=== PATIENT | female | born 1945 | race Caucasian/White ===

== ENCOUNTER 2016-05-11 13:03 | Emergency (ER) | payer MEDICARE, BC ==
--- NOTE | 2016-05-11 13:32 | ED ---
Lower Extremity Injury HPI - General Chief Complaint: Extremity Injury, Lower Stated Complaint: Fall/knee pain Time Seen by Provider: 05/11/16 13:19 Source: patient, RN notes reviewed Mode of arrival: wheelchair Limitations: no limitations - History of Present Illness Initial Comments: Patient is a 71-year-old female presents to the emergency room for evaluation of left knee pain. Patient states about an hour ago her dog ran into her left knee and she fell to the ground. Patient states after she got up she began having worsening left knee pain where her dog ran into her. Patient denies any other injuries during incident. Patient denies head trauma or pain on the right side where she landed. Patient states she landed on the grass. Patient states she's having 10 out of 10 pain in her knee whenever she puts weight on her left leg. Patient denies any pain when she is not putting weight on her left leg. Patient denies numbness or tingling in her toes. Patient states she took 3 Tylenol before arrival with slight relief symptoms. - Related Data Previous Rx's Medication Instructions Recorded HYDROcodone/APAP 5-325MG [[place] 1 tab PO Q6HR PRN #12 tab 05/11/16 5-325] Allergies Allergy/AdvReac Type Severity Reaction Status Date / Time No Known Allergies Allergy Verified 05/11/16 13:11 Review of Systems ROS Statement: Those systems with pertinent positive or pertinent negative responses have been documented in the HPI. ROS Other: All systems not noted in ROS Statement are negative. Past Medical History Additional Past Medical History / Comment(s): hx diverticulitis, has had some leakage of stool with coughing History of Any Multi-Drug Resistant Organisms: None Reported Past Surgical History: Hernia Repair Past Anesthesia/Blood Transfusion Reactions: No Reported Reaction, Postoperative Nausea & Vomiting (PONV) Past Psychological History: No Psychological Hx Reported Smoking Status: Never smoker Past Alcohol Use History: None Reported Past Drug Use History: None Reported - Past Family History Mother Family Medical History: Cancer Father Family Medical History: Cancer Sister(s) Family Medical History: Cancer General Exam - General Exam Comments Initial Comments: Sitting in exam room in no acute distress. Limitations: no limitations General appearance: alert, in no apparent distress Head exam: Present: atraumatic, normocephalic, normal inspection Eye exam: Present: normal appearance ENT exam: Present: normal exam Neck exam: Present: normal inspection Respiratory exam: Present: normal lung sounds bilaterally. Absent: respiratory distress Cardiovascular Exam: Present: regular rate, normal rhythm, normal heart sounds Left Upper Leg exam: Present: normal inspection, full ROM. Absent: tenderness Knee exam: Present: full ROM, tenderness (Pain on palpating over the lateral portion of the knee joint inferior to the patella), swelling, full knee extension. Absent: abrasion, laceration, ecchymosis, deformity, crepitus Lower Leg exam: Present: normal inspection, full ROM. Absent: tenderness Neurovascular tendon exam: Present: no vascular compromise. Absent: pulse deficit (2+ dorsal pedal and posterior tibial pulses), abnormal cap refill ( Capillary refill less than 2 seconds) Back exam: Present: normal inspection Neurological exam: Present: alert, oriented X3, CN II-XII intact Psychiatric exam: Present: normal affect, normal mood Skin exam: Present: warm, dry, intact, normal color. Absent: rash Course Vital Signs 05/11/16 05/11/16 13:08 15:02 Temperature 97.0 F L 97.1 F L Pulse Rate 67 74 Respiratory 16 18 Rate Blood Pressure 141/67 136/69 O2 Sat by Pulse 97 98 Oximetry Medical Decision Making - Medical Decision Making Patient is a 71-year-old female presents to the emergency room for evaluation of left knee pain. Left knee x-ray: Tibial plateau fracture with depression. Case states discussed with Dr. Mckeon. Dr. Mckeon also evaluated patient. Dr. Mckeon spoke with Dr. Lira who advised to place patient in a knee immobilizer and have her follow-up next week. Results and plan discussed with patient. Patient states she understands her diagnosis discussed with her. Return parameters discussed. - Radiology Data Radiology results: report reviewed, image reviewed Disposition Clinical Impression: Fracture of left tibial plateau Disposition: HOME SELF-CARE Condition: Good Instructions: Leg Fracture (ED), Knee Immobilizer (ED) Additional Instructions: Rest, elevate and ice on and off for 10-15 minutes for the next 24-48 hours. Use walker as needed to ambulate. Take Tylenol or Motrin as needed for pain. Take [place] as needed for severe pain. Please follow-up with behavior management specialist in 24-48 hours. If new symptoms develop or symptoms worsen, please return to the ER. Prescriptions: HYDROcodone/APAP 5-325MG [[place] 5-325] 1 tab PO Q6HR PRN #12 tab PRN Reason: Pain Referrals: Lena Crews MD [Primary Care Provider] - 1-2 days Deep Lira MD [Medical Doctor] - 1-2 days Time of Disposition: 14:44
--- NOTE | 2016-05-11 14:07 | XR ---
Left knee HISTORY: Trauma and pain 3 views of the left knee, no comparisons There is a depressed tibial plateau fracture laterally. No evident dislocation. Bone mineralization i s reduced. There is joint effusion. IMPRESSION: Tibial plateau fracture with depression, there is likely combination.
[2016-05-11 15:03] VITALS: BP 136/69; PULSE 74; RESP 18; TEMP 97.1
== END 2016-05-11 15:02 | disposition home or self-care (01) ==
LOC: EC 13:03
DX: S82.142A Displaced bicondylar fracture of left tibia, initial encounter for closed fracture (principal); W01.0XXA Fall on same level from slipping, tripping and stumbling without subsequent striking against object, initial encounter
CPT/HCPCS: 73562; 99284; L1830

== ENCOUNTER → 2016-05-13 | Outpatient (CLI) | payer MEDICARE, BC ==
--- NOTE | 2016-05-13 12:45 | CT ---
EXAMINATION TYPE: CT knee LT wo con DATE OF EXAM: 05/13/2016 12:34 PM COMPARISON: NONE HISTORY: LEFT KNEE PAIN FOLLOWING INJURY, PT STATES SHE WAS PUSHED DOWN BY HER DOG CT DLP: 359.8 mGycm Automated exposure control for dose reduction was used. Unenhanced CT of the left knee was performed in the axial coronal and sagittal planes with bone and soft tissue window settings submitted. FINDINGS: Mildly comminuted and depressed fracture lateral tibial plateau. Fracture depression is estimated at approximately 5.7 mm. Fracture displacement that the 2 mm. A fracture component does extend just medi al to the medial intercondylar spine. No additional fractures identified with certainty. Small hemart hrosis identified. Patellas intact. IMPRESSION: MILDLY COMMINUTED MILDLY DEPRESSED FRACTURE INVOLVING THE LATERAL TIBIAL PLATEAU WITH NONDISPLACED OF FRACTURE COMPONENT EXTENDING JUST MEDIAL TO THE MEDIAL INTERCONDYLAR SPINE.
== END | disposition home or self-care (01) ==
LOC: RADCTMAIN 12:14
PROVIDERS: ATTEND Orthopaedic Surgery
DX: S82.122A Displaced fracture of lateral condyle of left tibia, initial encounter for closed fracture (principal)

== ENCOUNTER 2016-05-17 12:34 | Day surgery (SDC) | payer MEDICARE, BC ==
[2016-05-15 16:02] VITALS: BMI 29.2
[~2016-05-17 12:34] MED LIST: HYDROmorphone 1 MG/ML 1 ML SYRINGE IVP PRN; MIDAZOLAM 2 MG/2 ML VIAL IV PRN; ONDANSETRON 4 MG/2 ML VIAL IVP ONE
[2016-05-17] MEDS: LACTATED RINGERS 1,000 ML IV SCH ×2 (13:10→20:38)
[2016-05-17] MEDS ORDERED: LIDOCAINE 1% 20 ML VIAL (10MG/ML) FOR IV START INTRADERMA ONE (13:11)
[2016-05-17] MEDS ORDERED: DEXAMETHASONE SOD PHOSPHATE 10 MG/ML 1 ML VIAL IV ONE (13:12)
[2016-05-17] MEDS ORDERED: PROPOFOL 10 MG/ML 20 ML VIAL IV ONE (14:36)
[2016-05-17] MEDS ORDERED: fentaNYL (PF) 50 MCG/ML 2 ML AMP ONE (14:36)
[2016-05-17] MEDS ORDERED: HYDROmorphone (PF) 1 MG/ML ONE (14:36)
[2016-05-17] MEDS ORDERED: PHENYLEPHRINE-0.9% NACL SYG 1 MG/10 ML SYRINGE ONE (14:36)
[2016-05-17] MEDS ORDERED: MIDAZOLAM 2 MG/2 ML VIAL ONE (14:36)
[2016-05-17] MEDS: ceFAZolin 2 GM in SODIUM CHLORIDE 0.9% 100 ML IVPB ONE ×2 (14:42→14:53)
[2016-05-17] MEDS ORDERED: ceFAZolin 1,000 MG in SODIUM CHLORIDE 0.9% 1,000 ML IRRIGATION ONE (14:43)
[2016-05-17] MEDS ORDERED: LACTATED RINGERS 1,000 ML IV ONE (15:23)
--- NOTE | 2016-05-17 17:25 | FL ---
EXAMINATION TYPE: FL guidance operating room DATE OF EXAM: 05/17/2016 5:19 PM FLUOROSCOPY Fluoroscopy time of 3 minutes 53 seconds was used during ORIF left tibia. 8 image/s document/s the p rocedure.
[2016-05-17] MEDS ORDERED: NALOXONE 0.4 MG/ML 1 ML VIAL IV PRN (17:55)
[2016-05-17] MEDS ORDERED: HYDROcodone/APAP 5-325MG 1 EACH TAB PO PRN (17:55)
[2016-05-17] MEDS ORDERED: MAGNESIUM HYDROXIDE 2,400 MG/10 ML CUP PO PRN (17:55)
--- NOTE | 2016-05-17 18:15 | P.OP ---
Date of Procedure: 05/17/16 Preoperative Diagnosis: Left split-depression tibial plateau fracture Postoperative Diagnosis: Closed, left split-depression tibial plateau fracture Procedure(s) Performed: Open reduction internal fixation of left tibial plateau fracture Anesthesia: spinal Surgeon: Deep Lira Estimated Blood Loss (ml): 50 IV fluids (ml): 1,400 Condition: stable Disposition: PACU Indications for Procedure: The patient is a very pleasant previously healthy 71-year-old female who sustained an isolated injury to her left knee last Friday when her dog ran into her. She fell to the ground and was unable to get up and walk. She was brought to the emergency department where x-rays showed a split depression tibial plateau fracture. She is placed in the immobilizer and follow-up in my office on Friday morning. X-rays showed a significantly displaced, lateral joint surface. The patient is previously very healthy and active. She enjoys walking outside and riding a bike. I recommendation is to perform an open reduction and internal fixation to elevate the depressed articular fragment to help lower her risk of getting arthritis. We discussed the potential risks and complications of surgery including but not limited to risk of anesthesia, risk of superficial infection, risk of deep infection, risk of septic knee arthritis , risk of damage to local blood vessels or nerves, risk of fracture nonunion, risk of fracture malunion, risk of posterior medical arthritis, risk of symptomatic hardware, risk of knee stiffness, risk of need for hardware removal , risk of need for further surgery, risk of need for knee replacement, risk of generalized satisfaction with surgery, and possibly loss of life or limb. The patient voiced her verbal understanding of these potential risks and provided her consent to go forward with surgery. Description of Procedure: The patient was identified in preoperative holding and the correct left leg was marked with a marker. I reviewed the consent form with the patient and her sons. All of their questions were answered. The patient was then brought back to the operating room. A spinal anesthetic was administered. She was transferred from the [facility] onto the operating room table. A tourniquet was applied to the proximal aspect of her left thigh. A bone foam ramp was placed under her left buttock internally rotating the left leg. The patient's left leg was then prepped and draped in the standard sterile fashion. Preoperative attics were administered. A timeout was performed identifying the correct patient, operative extremity, and procedure. The patient's leg was then elevated, exsanguinated with an Esmarch and age and the tourniquet was inflated to 250 mmHg. I began by outlining an L-shaped incision over the proximal lateral aspect of the tibia. A 10 cm longitudinal limb was marked out 1 fingerbreadth lateral to the anterior crest of the tibia. 1 cm distal to the joint surface a horizontal limb was made. Skin incision was made with a 10 blade scalpel over the longitudinal limb of the incision and I dissected carefully down to the fascia overlying the tibialis anterior muscle taking care to elevate full-thickness flaps. The tibialis anterior fascia was incised longitudinally in line with the skin incision. Muscle fibers the tibialis anterior were bluntly dissected off the tibia with a medium Gutierrez elevator. The horizontal limb of the incision was then made with a 10 blade scalpel I dissected carefully down with tenotomy scissors to the joint capsule. An 0 Vicryl suture was placed in the flap to help retract. A sub-meniscal arthrotomy was performed and sutures were placed through the lateral meniscus and capsule. With careful retraction of the sutures the lateral meniscus was visible and no tears were noted. The joint surface was visualized and there was a significantly depressed portion of the articular surface in the middle of the lateral plateau. I was able to put my finger into the joint and the fragment was significantly depressed. I began by making a cortical window in the anterolateral face of the proximal tibia. A series of bone tamps were used to try to elevate the articular fragment. I was unable to elevate the fragment. I then was able to identify the lateral split and gently opened it with an osteotome. I hinged the anterolateral fragment medially and was able to book it open. I then used a tamp to help free the depressed articular fragment. A lamina soccer ball assembler was placed into the void and gently opened elevating the depressed articular fragment. C-arm was brought in to verify elevation of the articular fragments. Once it was reduced K wires were placed holding it in place. I again verified that the joint surface was reduced. I was able to place a freer into the joint and there were no depressed fragments. I then closed down the anterolateral surface of the tibia. A Synthes precontoured anterolateral tibial plateau plate was placed. The sutures had been placed through the meniscus and synovium were placed through holes on the plate and tied down closing the sub-meniscal arthrotomy A 3.5 mm nonlocking screw was placed through the plate just distal to the split fracture bringing the plate down to bone. I then proceeded to place two 3.5 locking screws through the proximal aspect of the plate. A 3.5 mm drill bit was used to create a gliding hole and a 2.5 mm drill bit was used to create a threaded hole. Rafting screws were placed generating compression across the articular fragment. I then proceeded to place 2 locking screws proximally. I then placed a 3.5 mm nonlocking screw in the distalmost hole of the plate bringing it down to bone. I placed a locking screw just proximal to this. I then finally placed a kickstand screw. C-arm was brought in to take x-rays which showed hardware in a subcu position and the joint surface elevated. I then mixed Tessie bone void filler and used a syringe to inject it into the cortical window. At this point final x-rays including an AP of the knee and a lateral of the knee were taken. The lateral joint surface appeared to be elevated, hardware was in place, and the Norian bone cement was seen. The wound was copiously irrigated with sterile saline. The fascia over the tibialis anterior was closed with a running 0 Vicryl stitch. The deep subcu was reapproximated using 2-0 Vicryl. The skin was closed using 3-0 nylon Allgower modification of the Donati stitch. A sterile dressing consisting of Betadine soaked Adaptic, 4 x 4, web roll, and soft bulky cotton was applied. I verified with the news gathering technician that all instrument sponge and sharp counts were correct. The drapes were taken down and a knee immobilizer was placed. The patient was then transferred from the operating room table to the [facility] and brought to PACU having tied the procedure well. Plan: The patient is to remain strictly nonweightbearing on her left leg for 3 months. Knee immobilizer at all times except for hygiene. 2 doses postoperative antibiotics. DVT prophylaxis with Lovenox 40 mg daily 2 weeks. Bone health with calcium carbonate 500 mg 3 times a day, Vitamin E3 2000 units daily, and 25-hydroxy vitamin D level pending. Leave dressing in place. Discharge home when pain controlled and passes physical therapy.
[2016-05-17] MEDS: HYDROmorphone 1 MG/ML 1 ML SYRINGE IVP PRN ×2 (19:11→22:06)
[2016-05-17] MEDS: HYDROcodone/APAP 5-325MG 1 EACH TAB PO PRN (20:29)
[2016-05-17] MEDS: SENNOSIDES-DOCUSATE SODIUM 1 EACH TAB PO SCH (20:39)
[2016-05-17] MEDS: CALCIUM CARBONATE 500 MG CHEWABLE PO SCH (21:26)
[2016-05-17] MEDS: ceFAZolin 2 GM in SODIUM CHLORIDE 0.9% 100 ML IVPB SCH (23:28)
[2016-05-18] MEDS: HYDROmorphone 1 MG/ML 1 ML SYRINGE IVP PRN ×3 (00:16→17:18)
[2016-05-18] MEDS: HYDROcodone/APAP 5-325MG 1 EACH TAB PO PRN ×4 (02:03→21:02)
--- NOTE | 2016-05-18 08:31 | P.PN ---
Subjective Patient did well overnight. This morning she is complaining of pain in her left knee, but her pain is being adequately controlled. She denies chest pain or shortness of breath. Objective - Vital Signs Vital signs: Vital Signs Temp 98.2 F 05/18/16 01:11 Pulse 72 05/18/16 03:42 Resp 16 05/18/16 01:11 BP 128/81 05/18/16 01:11 Pulse Ox 97 05/18/16 03:42 Intake & Output 05/17/16 05/18/16 05/18/16 18:59 06:59 18:59 Intake Total 1850 60 Output Total 50 Balance 1800 60 Intake: IV 1850 60 Lactated Ringers 1,000 ml 60 @ 20 mls/hr IV .Q24H [facility] Rx#:[id number] Output: Estimated Blood Loss 50 Other: Voiding Method Bedpan # Voids 1 - Exam On examination the patient is in no apparent distress and is alert and oriented. On examination of the left lower extremity she has a knee immobilizer in place which was taken down. Her dressing is clean and dry with no drainage or saturated blood. Her thigh and calf are soft. Her foot is warm and well perfused with brisk capillary refill. She has no pain with passive range of motion of her toes. Sensation is intact to light touch in her toes. She can actively plantarflex and dorsiflex her toes. Assessment and Plan (1) Fracture of left tibial plateau Status: Acute Plan: Postoperative day #1 status post ORIF left tibial plateau. Doing well. 1. Strict nonweightbearing left lower extremity, knee immobilizer at all times. 2. 2 doses postoperative antibiotics. 3. DVT prophylaxis with Lovenox 40 mg daily 4. Please leave dressing in place until postoperative day #2, I will change the dressing tomorrow morning. 5. Bone health with calcium carbonate 500 mg 3 times a day, vitamin D3 2000 units daily, and 25-hydroxy vitamin D level pending 6. Appreciate internal medicine assistance with perioperative medical management 7. Physical therapy for gait training. 8. Social work for discharge planning 9. Anticipate either discharge home with assistance of family versus short- term nursing facility on Friday. Patient is okay to discharge when her pain is controlled and discharge planning is in place.
[2016-05-18] MEDS: CALCIUM CARBONATE 500 MG CHEWABLE PO SCH ×3 (08:44→21:01)
[2016-05-18] MEDS: ENOXAPARIN 40 MG/0.4 ML SYRINGE SQ SCH (08:44)
[2016-05-18] MEDS: ceFAZolin 2 GM in SODIUM CHLORIDE 0.9% 100 ML IVPB SCH (08:44)
--- NOTE | 2016-05-18 11:03 | P.CONS ---
History of Present Illness - Reason for Consult Consult date: 05/18/16 Medical management - History of Present Illness This is a very pleasant 71-year-old whose primary care provider is Dr. qiu which Dr. Butterfield is covering for . The attending has requested a medical consultation for medical management . Patient is postop May 17 open reduction internal fixation of a left tib-fibial plateau fracture . Patient states that she was in her usual state of health when last Friday she was out in the yard with her grandchildren when one of the dogs ran into her. She states she fell to the ground was not able to get up and walk. She came into the emergency room at that time the x-rays obtained showed a split depression tibial plateau fracture . Patient was placed in an immobilizer and was seen in the follow-up visit on Friday morning by orthopedic associate Dr. asnchez x-ray showed a significant displaced lateral joint surface. Involving the left. Recommendations by orthopedic Associates were to perform an open reduction internal fixation. The patient elected to proceed and did undergo the procedure on May 17. Patient gives no significant past medical history states takes no prescription medication or uses [id number] products. Patient states she's a very active individual. Rides her bicycle daily in the summer months writing up to 8 -10 miles a day. Patient states with activity does not experience any shortness of breath chest pain dizziness or lightheadedness. Review of Systems Essentially unremarkable except as mentioned in the present illness Past Medical History Additional Past Medical History / Comment(s): FX OF LEFT TIBIAL PLATEAU, hx diverticulitis, History of Any Multi-Drug Resistant Organisms: None Reported Past Surgical History: Hernia Repair Past Anesthesia/Blood Transfusion Reactions: No Reported Reaction Past Psychological History: No Psychological Hx Reported Smoking Status: Never smoker Past Alcohol Use History: None Reported Past Drug Use History: None Reported - Past Family History Brother(s) Family Medical History: Cancer, Pulmonary Embolus Additional Family Medical History / Comment(s): 2 BROTHERS CA, ONE WITH PE Mother Family Medical History: Cancer Father Family Medical History: Cancer Sister(s) Family Medical History: Cancer Medications and Allergies Home Medications Medication Instructions Recorded Confirmed Type Cholecalciferol [Vitamin D3] 1,000 unit PO DAILY 05/15/16 05/17/16 History Ibuprofen [Motrin] 200 - 400 mg PO Q6HR PRN 05/15/16 05/17/16 History Allergies Allergy/AdvReac Type Severity Reaction Status Date / Time No Known Allergies Allergy Verified 05/17/16 19:23 Physical Exam Vitals: Vital Signs Temp Pulse Resp BP Pulse Ox 05/18/16 03:42 72 97 05/18/16 01:11 98.2 F 113 H 16 128/81 95 05/17/16 20:30 73 136/90 97 05/17/16 20:15 73 131/85 100 05/17/16 20:00 74 147/87 95 05/17/16 19:45 94 147/87 96 05/17/16 19:30 94 158/77 97 05/17/16 19:15 100 156/89 98 05/17/16 19:11 16 05/17/16 19:00 74 134/69 94 L 05/17/16 18:45 72 134/78 95 05/17/16 18:30 98.4 F 93 16 133/60 94 L 05/17/16 18:15 91 16 110/59 92 L 05/17/16 18:00 99 16 113/59 92 L 05/17/16 17:43 97.2 F L 99 16 111/72 96 05/17/16 13:03 96.8 F L 101 H 16 161/92 96 Intake and Output 05/17/16 05/18/16 05/18/16 22:59 06:59 14:59 Intake Total 110 Output Total 50 Balance 60 Intake: IV 110 Lactated Ringers 1,000 ml 60 @ 20 mls/hr IV .Q24H [facility] Rx#:[id number] Output: Estimated Blood Loss 50 Other: Voiding Method Bedpan Bedpan # Voids 1 1 GENERAL APPEARANCE: 71-year-old female patient is alert, oriented, in no acute distress. Talkative pleasant patient states the pain medication has been effective for pain control VITAL SIGNS: Reviewed HEENT: Head is normocephalic and atraumatic. Pupils are equal and reactive. The nares are patent. Oropharynx is clear without lesions. NECK: Supple without lymphadenopathy. Traches midline. HEART: S1, S2. Regular rate and rhythm. No murmur noted denying chest pain LUNGS: No crackles or wheezes are heard. On room air sats are 95% no shortness of breath ABDOMEN: Soft, nontender, nondistended with good bowel sounds. No peritoneal signs. No palpable organomegaly or masses. Denies any burning on urination frequency urgency or incontinence denies any change in bowel habits reports no nausea vomiting EXTREMITIES: Normal skin color and turgor. No cyanosis, rash, ulceration, clubbing or edema. Radial pedal pulses are 2/4 bilaterally. An immobilizer on left extremity. Toes warm to touch NEUROLOGICAL: No focal deficits. Strength and sensation are grossly intact. Assessment and Plan Plan: Impression Postop day 2 ORIF left tibial plateau Lifelong nonsmoker History of a recent fall one week prior fall sustaining a left tibia plateau fracture Plan Continue postop orthopedic care per orthopedic service Pain control DVT prophylaxis using Lovenox 40 mg daily Patient has indicated that she is interested in subacute rehab [facility] social services assistant family caseworker to pursue Physical therapy for gait training Monitor blood pressure heart rate will address as indicated Calcium carbonate 500 mg 3 times a day, vitamin D 2000 units daily and follow- up on vitamin D level pending Depending on progress further recommendations will be made Thank you for allowing us to participate in the medical management of your patient The above dictated assessment and findings were discussed with Dr. Butterfield Impression and the plan of care have been dictated as directed. Tosiha Chen nurse practitioner acting as a scribe for dr butterfield
--- NOTE | 2016-05-18 13:55 | P.PN ---
Progress Note - Text Patient seen and examined on 05/18/2016 Full consult dictated by Toshia Chen nurse practitioner working with me today
[2016-05-18] MEDS: CHOLECALCIFEROL 1,000 UNIT TAB PO SCH (14:51)
[2016-05-18] MEDS: MULTIVITAMINS, THERA 1 EACH TAB PO SCH (14:51)
[2016-05-18] MEDS: SENNOSIDES-DOCUSATE SODIUM 1 EACH TAB PO SCH (21:01)
[2016-05-19] MEDS ORDERED: CALCIUM CARBONATE 500 MG CHEWABLE PO ONE ×3 (03:00)
[2016-05-19] MEDS ORDERED: SENNOSIDES-DOCUSATE SODIUM 1 EACH TAB PO ONE (03:00)
[2016-05-19] MEDS ORDERED: MULTIVITAMINS, THERA 1 EACH TAB ONE (03:00)
[2016-05-19] MEDS ORDERED: ENOXAPARIN 40 MG/0.4 ML SYRINGE SQ ONE (03:00)
[2016-05-19] MEDS ORDERED: HYDROcodone/APAP 5-325MG 1 EACH TAB ONE ×4 (03:00)
[2016-05-19] MEDS ORDERED: CHOLECALCIFEROL 1,000 UNIT TAB ONE (03:00)
[2016-05-19] MEDS: HYDROcodone/APAP 5-325MG 1 EACH TAB PO PRN ×4 (03:44→22:56)
[2016-05-19] MEDS: LACTATED RINGERS 1,000 ML IV SCH (06:04)
--- NOTE | 2016-05-19 08:33 | P.PN ---
Subjective A very pleasant 71-year-old female resting in bed states pain medication effective for pain control patient does report having an episode last evening of feeling nauseated no emesis. Patient is postop day 3 ORIF left tibial plateau fracture after patient had sustained a fall a week prior. Currently patient is denying any chest pain dizziness lightheadedness no shortness of breath Objective - Vital Signs Vital signs: Vital Signs Temp 97.9 F 05/19/16 02:29 Pulse 93 05/19/16 02:29 Resp 16 05/19/16 02:29 BP 136/71 05/19/16 02:29 Pulse Ox 93 L 05/19/16 02:29 Intake & Output 05/18/16 05/19/16 05/19/16 18:59 06:59 18:59 Intake Total 360 890 Balance 360 890 Intake: Oral 360 890 Other: Voiding Method Bedpan Bedpan # Voids 2 2 - Exam Physical exam Pleasant 71-year-old resting in bed appears in no acute distress states pain medication effective for pain control Lungs essentially clear on room air no wheezing rail rhonchi no cough no shortness of breath Heart S1-S2 audible regular denying chest pain Abdomen soft states urinating no difficulty no stooling no nausea vomiting Extremities no edema to the upper extremities lower extremity left immobilizer in place right lower extremity unremarkable no edema Assessment and Plan Plan: Impression Postop day 2 ORIF of left tibial plateau fracture Lifelong nonsmoker History of a recent fall one week prior fall sustaining a left tibia plateau fracture Plan Continue postop orthopedic care per orthopedic service Pain control DVT prophylaxis using Lovenox 40 mg daily Patient has indicated that she is interested in subacute rehab [facility] oncology social worker case management assistant to pursue Physical therapy for gait training Monitor blood pressure heart rate will address as indicated Calcium carbonate 500 mg 3 times a day, vitamin D 2000 units daily and follow- up on vitamin D level pending Depending on progress further recommendations will be made Thank you for allowing us to participate in the medical management of your patient The above dictated assessment and findings were discussed with Dr. Scout Menendez and the plan of care have been dictated as directed. Toshia Chen nurse practitioner acting as a scribe for dr wall
--- NOTE | 2016-05-19 08:35 | P.PN ---
Subjective The patient is doing well this morning. Her pain in the left knee is well- controlled. She denies chest pain or shortness of breath. Yesterday she attempted to get up with physical therapy but became nauseous and had to get back in bed. Objective - Vital Signs Vital signs: Vital Signs Temp 97.9 F 05/19/16 02:29 Pulse 93 05/19/16 02:29 Resp 16 05/19/16 02:29 BP 136/71 05/19/16 02:29 Pulse Ox 93 L 05/19/16 02:29 Intake & Output 05/18/16 05/19/16 05/19/16 18:59 06:59 18:59 Intake Total 360 890 Balance 360 890 Intake: Oral 360 890 Other: Voiding Method Bedpan Bedpan # Voids 2 2 - Exam The patient is in no apparent distress and is alert and oriented. On examination of the left leg she has a knee immobilizer and dressing in place. The dressing is clean and dry. The dressing was taken down and the wound inspected. Nylon sutures and Steri-Strips are in place. There is no erythema or drainage. The flap appears well perfused with brisk capillary refill. The calf is soft and compressible. Sensation is intact to light touch in the left foot. The patient can actively plantarflex and dorsiflex her ankles and toes. Assessment and Plan (1) Fracture of left tibial plateau Status: Acute Plan: Continue care as outlined yesterday including strict nonweightbearing left leg in a knee immobilizer at all times except for daily dressing changes. Mobilize out of bed to chair today. Continue physical therapy for gait training. Appreciate internal medicine assistance with perioperative medical management. Anticipate discharge tomorrow to [facility] facility.
[2016-05-19] MEDS: ENOXAPARIN 40 MG/0.4 ML SYRINGE SQ SCH (10:17)
[2016-05-19] MEDS: CHOLECALCIFEROL 1,000 UNIT TAB PO SCH (10:17)
[2016-05-19] MEDS: MULTIVITAMINS, THERA 1 EACH TAB PO SCH (10:17)
[2016-05-19] MEDS: CALCIUM CARBONATE 500 MG CHEWABLE PO SCH ×3 (10:17→21:00)
[2016-05-19] MEDS: SENNOSIDES-DOCUSATE SODIUM 1 EACH TAB PO SCH (21:00)
[2016-05-20 01:32] VITALS: RESP 16
[2016-05-20] MEDS: LACTATED RINGERS 1,000 ML IV SCH (03:16)
[2016-05-20] MEDS: HYDROcodone/APAP 5-325MG 1 EACH TAB PO PRN ×2 (04:41→11:07)
--- NOTE | 2016-05-20 07:28 | XR ---
Limited left leg HISTORY: Open reduction internal fixation 8 Intraoperative C-arm images document the procedure.
[2016-05-20 07:29] VITALS: BP 126/76; PULSE 87; TEMP 98.1
[2016-05-20] MEDS: CALCIUM CARBONATE 500 MG CHEWABLE PO SCH (07:42)
[2016-05-20] MEDS: ENOXAPARIN 40 MG/0.4 ML SYRINGE SQ SCH (07:42)
[2016-05-20] MEDS: CHOLECALCIFEROL 1,000 UNIT TAB PO SCH (07:43)
[2016-05-20] MEDS: MULTIVITAMINS, THERA 1 EACH TAB PO SCH (07:43)
--- NOTE | 2016-05-20 11:05 | P.DS ---
Providers Expected date of discharge: 05/20/16 Attending physician: Deep Lira Consults: 05/17/16 17:55 Consult Physician Routine Consulting Provider: Arvind Butterfield Consult Reason/Comments: post op medical management Do you want consulting provider notified?: Yes Primary care physician: Lena Crews Plan - Discharge Summary New Discharge Prescriptions: Calcium Carbonate [Tums] 500 mg PO TID #90 chewable Cholecalciferol [Vitamin D3] 2,000 unit PO DAILY #60 tablet Docusate [Colace] 100 mg PO BID #28 capsule Enoxaparin [Lovenox] 40 mg SQ Q12H 14 Days HYDROcodone/APAP 5-325MG [Nunda 5-325] 1 - 2 tab PO Q6HR PRN #60 tab PRN Reason: Pain Discharge Medication List HYDROcodone/APAP 5-325MG [Nunda 5-325] 1 tab PO Q6HR PRN #12 tab 05/11/16 [Rx] Cholecalciferol [Vitamin D3] 1,000 unit PO DAILY 05/15/16 [History] Ibuprofen [Motrin] 200 - 400 mg PO Q6HR PRN 05/15/16 [History] Calcium Carbonate [Tums] 500 mg PO TID #90 chewable 05/18/16 [Rx] Cholecalciferol [Vitamin D3] 2,000 unit PO DAILY #60 tablet 05/18/16 [Rx] Docusate [Colace] 100 mg PO BID #28 capsule 05/18/16 [Rx] Enoxaparin [Lovenox] 40 mg SQ Q12H 14 Days 05/18/16 [Rx] HYDROcodone/APAP 5-325MG [Nunda 5-325] 1 - 2 tab PO Q6HR PRN #60 tab 05/18/16 [ Rx] Follow up Appointment(s)/Referral(s): [facility] Nurse, [NON-STAFF] - 1 Week Deep Lira MD [Medical Doctor] - 2 Weeks Activity/Diet/Wound Care/Special Instructions: 1. Strict nonweightbearing left leg 2. Knee immobilizer on at all times except for hygiene 3. Daily dressing changes with gauze and paper tape over left knee 4. Okay to shower and get incision wet in the shower. After showering incision dry and keep covered with gauze. No soaking or submerging leg and water. 5. Follow-up in office 2 weeks after discharge from hospital
--- NOTE | 2016-05-20 11:53 | P.PN ---
Subjective Patient is doing fairly well today. She is looking forward to go home later on. Objective - Vital Signs Vital signs: Vital Signs Temp 98.1 F 05/20/16 07:29 Pulse 87 05/20/16 07:29 Resp 16 05/20/16 07:29 BP 126/76 05/20/16 07:29 Pulse Ox 95 05/20/16 07:29 Intake & Output 05/19/16 05/20/16 05/20/16 18:59 06:59 18:59 Intake Total 240 200 480 Balance 240 200 480 Intake: Oral 240 200 480 Other: Voiding Method Bedpan Toilet Toilet # Voids 1 2 1 - Exam General: The patient is awake and alert, in no distress Eye: there is normal conjunctiva bilaterally. Neck: The neck is supple, there is no JVD. Cardiovascular: Normal S1-S2, no S3-S4, no murmurs. Respiratory: Lungs clear to auscultation bilaterally Gastrointestinal: Abdomen is soft, nontender Musculoskeletal: There is no pedal edema. Neurological:. Speech is normal. Skin: Skin is warm and dry Assessment and Plan Plan: Impression Postop day 3 status post ORIF of left tibial plateau fracture Lifelong nonsmoker History of a recent fall one week prior fall sustaining a left tibia plateau fracture Plan Patient is medically cleared for discharge Physical therapy for gait training: Set up with home Calcium carbonate 500 mg 3 times a day, vitamin D 2000 units daily and follow- up on vitamin D level as an outpatient Thank you for allowing us to participate in the medical management of your patient
== END 2016-05-20 16:49 | disposition home health service (06) ==
LOC: OR 12:34 → 3SUR 17:43 → OR 05-20 16:49
PROVIDERS: ATTEND Orthopaedic Surgery
DX: S82.142A Displaced bicondylar fracture of left tibia, initial encounter for closed fracture (principal); W54.1XXA Struck by dog, initial encounter; Z79.891 Long term (current) use of opiate analgesic
CPT/HCPCS: 97116; 97162; 82306; 73590; 27535; C1713; J2250; J1100; J0690 ×3; J2405; J1650 ×2; J3010; J1170 ×2; J2370; J2704

== ENCOUNTER 2019-11-11 12:35 | Emergency (ER) | payer MEDICARE, BC ==
[2019-11-11] MEDS ORDERED: SODIUM CHLORIDE 0.9% 1,000 ML IV STA (12:50)
--- NOTE | 2019-11-11 13:01 | ED ---
URI HPI - General Chief Complaint: Upper Respiratory Infection Stated Complaint: Cough/SOB Time Seen by Provider: 11/11/19 12:50 Source: patient, RN notes reviewed, old records reviewed Mode of arrival: ambulatory Limitations: no limitations - History of Present Illness Initial Comments: This is a 74-year-old female James with multiple current complaints. She complains of generalized body aches, sore throat achiness throughout her upper and lower extremities. She does have a cough and did have a fever yesterday otherwise patient has no significant medical history no recent travel history or sick contacts MD Complaint: fever, cough, sore throat, other (Generalized body aches) -: days(s) Severity: moderate Severity scale (1-10): 4 Quality: dull Consistency: constant Improves With: nothing Worsens With: nothing Associated Symptoms: fever, myalgias, cough Treatments Prior to Arrival: none - Related Data Home Medications Medication Instructions Recorded Confirmed Cholecalciferol [Vitamin D3 (25 1,000 unit PO DAILY 05/15/16 05/17/16 Mcg = 1000 Iu)] Ibuprofen [Motrin] 200 - 400 mg PO Q6HR PRN 05/15/16 05/17/16 Previous Rx's Medication Instructions Recorded HYDROcodone/APAP 5-325MG [[place] 1 tab PO Q6HR PRN #12 tab 05/11/16 5-325] Calcium Carbonate [Tums] 500 mg PO TID #90 chewable 05/18/16 Cholecalciferol [Vitamin D3 (25 2,000 unit PO DAILY #60 tablet 05/18/16 Mcg = 1000 Iu)] Docusate [Colace] 100 mg PO BID #28 capsule 05/18/16 Enoxaparin [Lovenox] 40 mg SQ Q12H 14 Days syringe 05/18/16 HYDROcodone/APAP 5-325MG [[place] 1 - 2 tab PO Q6HR PRN #60 tab 05/18/16 5-325] Cephalexin [Keflex] 500 mg PO Q6HR 3 Days #12 cap 11/11/19 Allergies Allergy/AdvReac Type Severity Reaction Status Date / Time No Known Allergies Allergy Verified 11/11/19 12:40 Review of Systems ROS Statement: Those systems with pertinent positive or pertinent negative responses have been documented in the HPI. ROS Other: All systems not noted in ROS Statement are negative. Past Medical History Additional Past Medical History / Comment(s): hx diverticulitis, has had some leakage of stool with coughing History of Any Multi-Drug Resistant Organisms: None Reported Past Surgical History: Hernia Repair, Orthopedic Surgery Additional Past Surgical History / Comment(s): L knee Past Anesthesia/Blood Transfusion Reactions: No Reported Reaction, Postoperative Nausea & Vomiting (PONV) Past Psychological History: No Psychological Hx Reported Smoking Status: Never smoker Past Alcohol Use History: Rare Past Drug Use History: None Reported - Past Family History Brother(s) Family Medical History: Cancer, Pulmonary Embolus Mother Family Medical History: Cancer Father Family Medical History: Cancer Sister(s) Family Medical History: Cancer General Exam Limitations: no limitations General appearance: alert, in no apparent distress Head exam: Present: atraumatic, normocephalic, normal inspection Eye exam: Present: normal appearance, PERRL, EOMI. Absent: scleral icterus, conjunctival injection, periorbital swelling ENT exam: Present: normal exam, mucous membranes moist Neck exam: Present: normal inspection. Absent: tenderness, meningismus, lymphadenopathy Respiratory exam: Present: normal lung sounds bilaterally. Absent: respiratory distress, wheezes, rales, rhonchi, stridor Cardiovascular Exam: Present: regular rate, normal rhythm, normal heart sounds. Absent: systolic murmur, diastolic murmur, rubs, gallop, clicks GI/Abdominal exam: Present: soft, normal bowel sounds. Absent: distended, tenderness, guarding, rebound, rigid Extremities exam: Present: normal inspection, full ROM, normal capillary refill. Absent: tenderness, pedal edema, joint swelling, calf tenderness Back exam: Present: normal inspection Neurological exam: Present: alert, oriented X3, CN II-XII intact Psychiatric exam: Present: normal affect, normal mood Skin exam: Present: warm, dry, intact, normal color. Absent: rash Course Vital Signs 11/11/19 11/11/19 11/11/19 12:40 13:27 14:14 Temperature 98.6 F 100.6 F H Pulse Rate 70 101 H 114 H Respiratory 18 19 18 Rate Blood Pressure 132/75 145/79 146/86 O2 Sat by Pulse 98 97 95 Oximetry - Reevaluation(s) Reevaluation #1: 11/11/19 13:00 Medical records reviewed Reevaluation #2: 11/11/19 15:42 Spoke with patient regarding findings, questions answered, patient refusing ultrasound or further evaluation at this time Medical Decision Making - Medical Decision Making 74 female DF for evaluation patient with cough and fever wanting coronavirus testing, will send coronavirus test treat for urinary tract infection patient can be discharged home - Lab Data Result diagrams: 11/11/19 13:06 11/11/19 13:06 Lab Results 11/11/19 11/11/19 11/11/19 Range/Units 13:06 13:06 13:06 WBC 11.4 H (3.8-10.6) k/uL RBC 5.15 (3.80-5.40) m/uL Hgb 13.1 (11.4-16.0) gm/dL Hct 40.7 (34.0-46.0) % MCV 78.9 L (80.0-100.0) fL MCH 25.3 (25.0-35.0) pg MCHC 32.1 (31.0-37.0) g/dL RDW 14.9 (11.5-15.5) % Plt Count 280 (150-450) k/uL Neutrophils % 80 % Lymphocytes % 12 % Monocytes % 5 % Eosinophils % 2 % Basophils % 0 % Neutrophils # 9.2 H (1.3-7.7) k/uL Lymphocytes # 1.4 (1.0-4.8) k/uL Monocytes # 0.6 (0-1.0) k/uL Eosinophils # 0.2 (0-0.7) k/uL Basophils # 0.1 (0-0.2) k/uL PT 9.6 (9.0-12.0) sec INR 0.9 (<1.2) APTT 24.8 (22.0-30.0) sec Sodium 134 L (137-145) mmol/L Potassium 4.1 (3.5-5.1) mmol/L Chloride 102 (98-107) mmol/L Carbon Dioxide 25 (22-30) mmol/L Anion Gap 7 mmol/L BUN 12 (7-17) mg/dL Creatinine 0.71 (0.52-1.04) mg/dL Est GFR (CKD-EPI)AfAm >90 (>60 ml/min/1.73 sqM) Est GFR (CKD-EPI)NonAf 83 (>60 ml/min/1.73 sqM) Glucose 118 H (74-99) mg/dL Plasma Lactic Acid Hector (0.7-2.0) mmol/L Calcium 8.9 (8.4-10.2) mg/dL Phosphorus 2.4 L (2.5-4.5) mg/dL Magnesium 2.0 (1.6-2.3) mg/dL Total Bilirubin 0.4 (0.2-1.3) mg/dL AST 47 H (14-36) U/L ALT 36 H (4-34) U/L Alkaline Phosphatase 194 H (38-126) U/L Creatine Kinase 37 (30-135) U/L Troponin I (0.000-0.034) ng/mL C-Reactive Protein 63.4 H (<10.0) mg/L NT-Pro-B Natriuret Pep pg/mL Total Protein 6.4 (6.3-8.2) g/dL Albumin 3.7 (3.5-5.0) g/dL Lipase (23-300) U/L Urine Color Urine Appearance (Clear) Urine pH (5.0-8.0) Ur Specific [place] (1.001-1.035) Urine Protein (Negative) Urine Glucose (UA) (Negative) Urine Ketones (Negative) Urine Blood (Negative) Urine Nitrite (Negative) Urine Bilirubin (Negative) Urine Urobilinogen (<2.0) mg/dL Ur Leukocyte Esterase (Negative) Urine RBC (0-5) /hpf Urine WBC (0-5) /hpf Ur Squamous Epith Cells (0-4) /hpf Urine Bacteria (None) /hpf Hyaline Casts (0-2) /lpf Urine Mucus (None) /hpf 11/11/19 11/11/19 11/11/19 Range/Units 13:06 13:06 13:06 WBC (3.8-10.6) k/uL RBC (3.80-5.40) m/uL Hgb (11.4-16.0) gm/dL Hct (34.0-46.0) % MCV (80.0-100.0) fL MCH (25.0-35.0) pg MCHC (31.0-37.0) g/dL RDW (11.5-15.5) % Plt Count (150-450) k/uL Neutrophils % % Lymphocytes % % Monocytes % % Eosinophils % % Basophils % % Neutrophils # (1.3-7.7) k/uL Lymphocytes # (1.0-4.8) k/uL Monocytes # (0-1.0) k/uL Eosinophils # (0-0.7) k/uL Basophils # (0-0.2) k/uL PT (9.0-12.0) sec INR (<1.2) APTT (22.0-30.0) sec Sodium (137-145) mmol/L Potassium (3.5-5.1) mmol/L Chloride (98-107) mmol/L Carbon Dioxide (22-30) mmol/L Anion Gap mmol/L BUN (7-17) mg/dL Creatinine (0.52-1.04) mg/dL Est GFR (CKD-EPI)AfAm (>60 ml/min/1.73 sqM) Est GFR (CKD-EPI)NonAf (>60 ml/min/1.73 sqM) Glucose (74-99) mg/dL Plasma Lactic Acid Hector 1.6 (0.7-2.0) mmol/L Calcium (8.4-10.2) mg/dL Phosphorus (2.5-4.5) mg/dL Magnesium (1.6-2.3) mg/dL Total Bilirubin (0.2-1.3) mg/dL AST (14-36) U/L ALT (4-34) U/L Alkaline Phosphatase (38-126) U/L Creatine Kinase (30-135) U/L Troponin I <0.012 (0.000-0.034) ng/mL C-Reactive Protein (<10.0) mg/L NT-Pro-B Natriuret Pep 68 pg/mL Total Protein (6.3-8.2) g/dL Albumin (3.5-5.0) g/dL Lipase (23-300) U/L Urine Color Urine Appearance (Clear) Urine pH (5.0-8.0) Ur Specific [place] (1.001-1.035) Urine Protein (Negative) Urine Glucose (UA) (Negative) Urine Ketones (Negative) Urine Blood (Negative) Urine Nitrite (Negative) Urine Bilirubin (Negative) Urine Urobilinogen (<2.0) mg/dL Ur Leukocyte Esterase (Negative) Urine RBC (0-5) /hpf Urine WBC (0-5) /hpf Ur Squamous Epith Cells (0-4) /hpf Urine Bacteria (None) /hpf Hyaline Casts (0-2) /lpf Urine Mucus (None) /hpf 11/11/19 11/11/19 Range/Units 14:12 14:12 WBC (3.8-10.6) k/uL RBC (3.80-5.40) m/uL Hgb (11.4-16.0) gm/dL Hct (34.0-46.0) % MCV (80.0-100.0) fL MCH (25.0-35.0) pg MCHC (31.0-37.0) g/dL RDW (11.5-15.5) % Plt Count (150-450) k/uL Neutrophils % % Lymphocytes % % Monocytes % % Eosinophils % % Basophils % % Neutrophils # (1.3-7.7) k/uL Lymphocytes # (1.0-4.8) k/uL Monocytes # (0-1.0) k/uL Eosinophils # (0-0.7) k/uL Basophils # (0-0.2) k/uL PT (9.0-12.0) sec INR (<1.2) APTT (22.0-30.0) sec Sodium (137-145) mmol/L Potassium (3.5-5.1) mmol/L Chloride (98-107) mmol/L Carbon Dioxide (22-30) mmol/L Anion Gap mmol/L BUN (7-17) mg/dL Creatinine (0.52-1.04) mg/dL Est GFR (CKD-EPI)AfAm (>60 ml/min/1.73 sqM) Est GFR (CKD-EPI)NonAf (>60 ml/min/1.73 sqM) Glucose (74-99) mg/dL Plasma Lactic Acid Hector (0.7-2.0) mmol/L Calcium (8.4-10.2) mg/dL Phosphorus (2.5-4.5) mg/dL Magnesium (1.6-2.3) mg/dL Total Bilirubin (0.2-1.3) mg/dL AST (14-36) U/L ALT (4-34) U/L Alkaline Phosphatase (38-126) U/L Creatine Kinase (30-135) U/L Troponin I (0.000-0.034) ng/mL C-Reactive Protein (<10.0) mg/L NT-Pro-B Natriuret Pep pg/mL Total Protein (6.3-8.2) g/dL Albumin (3.5-5.0) g/dL Lipase 57 (23-300) U/L Urine Color Yellow Urine Appearance Cloudy H (Clear) Urine pH 5.5 (5.0-8.0) Ur Specific [place] 1.024 (1.001-1.035) Urine Protein Trace H (Negative) Urine Glucose (UA) Negative (Negative) Urine Ketones Negative (Negative) Urine Blood Trace H (Negative) Urine Nitrite Negative (Negative) Urine Bilirubin Negative (Negative) Urine Urobilinogen 3.0 (<2.0) mg/dL Ur Leukocyte Esterase Large H (Negative) Urine RBC 7 H (0-5) /hpf Urine WBC 68 H (0-5) /hpf Ur Squamous Epith Cells 24 H (0-4) /hpf Urine Bacteria Few H (None) /hpf Hyaline Casts 2 (0-2) /lpf Urine Mucus Many H (None) /hpf - EKG Data -: EKG Interpreted by Me (EKG shows sinus tachycardia 114 NJ 140 QRS 70 QTC is 438) - Radiology Data Radiology results: report reviewed (Chest x-rays negative for acute disease), image reviewed Disposition Clinical Impression: Fever, UTI (urinary tract infection), Viral infection Disposition: HOME SELF-CARE Condition: Good Instructions (If sedation given, give patient instructions): Urinary Tract Infection in Women (ED), Fever in Adults (ED) Prescriptions: Cephalexin [Keflex] 500 mg PO Q6HR 3 Days #12 cap Is patient prescribed a controlled substance at d/c from ED?: No Referrals: Lena Crews MD [Primary Care Provider] - 1-2 days
[2019-11-11 13:28] LABS: Basophils # (A) 0.1 k/uL (0-0.2); Basophils % (A) 0 %; Eosinophils # (A) 0.2 k/uL (0-0.7); Eosinophils % (A) 2 %; HCT 40.7 % (34.0-46.0); HGB 13.1 gm/dL (11.4-16.0); Lymphocytes # (A) 1.4 k/uL (1.0-4.8); Lymphocytes % (A) 12 %; MCH 25.3 pg (25.0-35.0); MCHC 32.1 g/dL (31.0-37.0); MCV 78.9 fL (80.0-100.0); Mean Platelet Volume 8.1; Monocytes # (A) 0.6 k/uL (0-1.0); Monocytes % (A) 5 %; Neutrophils # (A) 9.2 k/uL (1.3-7.7); Neutrophils % (A) 80 %; Platelet Count 280 k/uL (150-450); RBC 5.15 m/uL (3.80-5.40); RDW 14.9 % (11.5-15.5); WBC 11.4 k/uL (3.8-10.6)
[2019-11-11 13:40] LABS: INR 0.9 (<1.2); Partial Thromboplastin Time 24.8 sec (22.0-30.0); Prothrombin Time 9.6 sec (9.0-12.0)
[2019-11-11 13:42] LABS: ALT 36 U/L (4-34); AST 47 U/L (14-36); African American GFR (CKD) >90 (>60 ml/min/1.73 sqM); Albumin 3.7 g/dL (3.5-5.0); Alkaline Phosphatase 194 U/L (38-126); Anion Gap 7 mmol/L; Blood Urea Nitrogen 12 mg/dL (7-17); C Reactive Protein 63.4 mg/L (<10.0); Calcium 8.9 mg/dL (8.4-10.2); Carbon Dioxide 25 mmol/L (22-30); Chloride 102 mmol/L (98-107); Creatine Kinase 37 U/L (30-135); Glucose 118 mg/dL (74-99); Non-African American GFR(CKD) 83 (>60 ml/min/1.73 sqM); Phosphorus 2.4 mg/dL (2.5-4.5); Potassium 4.1 mmol/L (3.5-5.1); Sodium 134 mmol/L (137-145); Total Bilirubin 0.4 mg/dL (0.2-1.3); Total Protein 6.4 g/dL (6.3-8.2)
--- NOTE | 2019-11-11 14:02 | XR ---
EXAMINATION TYPE: XR chest 2V DATE OF EXAM: 11/11/2019 COMPARISON: NONE HISTORY: Coughing and shortness of breath. TECHNIQUE: Frontal and lateral views of the chest are obtained. FINDINGS: There is reticular interstitial changes bilaterally without suspicious focal air space opa city, pleural effusion, or pneumothorax seen. The cardiac silhouette size is upper limits of normal. The osseous structures are demineralized. Underlying scoliotic curvature. IMPRESSION: Reticular interstitial changes favor chronic parenchymal fibrosis. No suspicious focal i nfiltrate. Correlation with old outside chest x-ray would be beneficial.
[2019-11-11 14:19] VITALS: RESP 18
[2019-11-11 14:42] LABS: Appearance,Urine Cloudy (Clear); Bacteria,Urine Few /hpf; Bilirubin,Urine Negative (Negative); Blood,Urine Trace (Negative); Color,Urine Yellow; Glucose,Urine (UA) Negative (Negative); Hyaline Casts,Urine 2 /lpf (0-2); Ketones,Urine Negative (Negative); Leukocyte Esterase,Urine Large (Negative); Mucus,Urine Many /hpf; Nitrite,Urine Negative (Negative); PH, Urine 5.5 (5.0-8.0); Protein,Urine Trace (Negative); RBC,Urine 7 /hpf (0-5); Specific Gravity,Urine 1.024 (1.001-1.035); Squamous Epithelial Cell,Urine 24 /hpf (0-4); WBC,Urine 68 /hpf (0-5)
[2019-11-11] MEDS ORDERED: cefTRIAXone IN SWFI 1,000 MG/10 ML SYRINGE IVP STA (15:22)
[2019-11-11] MEDS ORDERED: CEPHALEXIN 500MG STARTER PACK 4 CAP BTL PO STA (15:41)
[2019-11-11] MEDS ORDERED: IBUPROFEN 600 MG TAB PO STA (15:41)
[2019-11-11] MEDS ORDERED: ACETAMINOPHEN TAB 500 MG TAB PO STA (15:41)
[2019-11-11 15:47] VITALS: BP 142/82; PULSE 106; TEMP 102.3
[2019-11-11 18:26] LABS: Ferritin 22.9 ng/mL (10.0-291.0)
== END 2019-11-11 15:55 | disposition home or self-care (01) ==
LOC: EC 12:35
DX: N39.0 Urinary tract infection, site not specified (principal); B34.9 Viral infection, unspecified; Z20.828 Contact with and (suspected) exposure to other viral communicable diseases
CPT/HCPCS: 36415; 93005; 83880; 80053; 82728; 82550; 83605; 83690; 83735; 84100; 84484; 85025; 85610; 85730; 86140; 81001; 87040; 87086; 84145; 71046; 99284; 96374; 96361 ×3; U0003; J0696

== ENCOUNTER 2020-04-11 08:31 | Day surgery (SDC) | payer BC, MEDICARE ==
[2020-04-06 15:53] VITALS: BMI 31.2
[~2020-04-11 08:31] MED LIST changes: -HYDROmorphone 1 MG/ML 1 ML SYRINGE IVP PRN; +LACTATED RINGERS 1,000 ML IV SCH; +LIDOCAINE 1% (10MG/ML) FOR IV START INTRADERMA PRN; -MIDAZOLAM 2 MG/2 ML VIAL IV PRN; -ONDANSETRON 4 MG/2 ML VIAL IVP ONE
[2020-04-11 09:11] VITALS: RESP 16; TEMP 97.2
[2020-04-11] MEDS ORDERED: PROPOFOL 10 MG/ML 20 ML VIAL IV ONE (09:48)
--- NOTE | 2020-04-11 10:26 | P.PCN ---
Date of Procedure: 04/11/20 Description of Procedure: BRIEF HISTORY: Patient is a 74-year-old female who presents for outpatient colonoscopy for evaluation of family history of colon cancer. The patient reports a family history of colon cancer in her father. She is on multiple colonoscopies symptoms or prior polypectomy. Last colonoscopy 5 years ago per her recollection. No change in bowel habits or blood per rectum reported. PREOPERATIVE DIAGNOSIS: Family history of colon cancer, last colonoscopy 5 years ago per patient. ESTIMATED BLOOD LOSS: Minimal. IV sedation per Anesthesia. PROCEDURE: After informed consent was obtained, the patient, was brought into the endoscopy unit. IV sedation was administered by Anesthesia under continuous monitoring. Digital rectal examination was normal. Initially the Olympus CF-190 flexible video colonoscope was then inserted in the rectum, gradually advanced into the cecum without any difficulty. Careful examination was performed as the scope was gradually being withdrawn. Ileocecal valve and the appendiceal orifice were visualized and appeared normal. Prep was excellent. Mucosa of the cecum, ascending colon, transverse colon, descending colon, sigmoid colon, and rectum appeared normal. The terminal ileum was intubated and appeared normal. A few scattered diverticula noted throughout the colon. Retroflexion was performed in the rectum and no lesions were seen, low-grade internal hemorrhoids noted. The patient tolerated the procedure well. IMPRESSION: Mild pandiverticulosis. Internal hemorrhoids. RECOMMENDATIONS: Findings of this examination were discussed with the patient and her family. Okay to resume diet. Okay to resume medications. Recommendation is for repeat colonoscopy in 5 years for family history of colon cancer if patient is medically stable at that time and interested in pursuing further screening which has been discussed with her at length.
[2020-04-11 10:40] VITALS: BP 161/74; PULSE 60
== END 2020-04-11 11:11 | disposition home or self-care (01) ==
LOC: ORWHC2ENDO 08:31
PROVIDERS: ATTEND Internal Medicine
DX: Z12.11 Encounter for screening for malignant neoplasm of colon (principal); K57.30 Diverticulosis of large intestine without perforation or abscess without bleeding; K64.8 Other hemorrhoids; Z80.0 Family history of malignant neoplasm of digestive organs; Z98.890 Other specified postprocedural states
CPT/HCPCS: J2704; G0105; 45378